=== PATIENT | female | born 1990 | race African-American/Black ===

== ENCOUNTER 2018-01-22 07:17 | Emergency (ER) | payer OTHER ==
[~2018-01-22] VITALS: Ht 165.1 cm; Wt 86.4 kg
[2018-01-22 07:20] VITALS: BP 121/71
[2018-01-22] MEDS ORDERED: ACET-66 PO (07:27)
[2018-01-22] MEDS ORDERED: CYCL-309 PO (07:27)
[2018-01-22] MEDS ORDERED: DIAZ5TAB PO (07:27)
== END 2018-01-22 08:25 | disposition home or self-care (01) ==
LOC: EMS 07:19
DX: M54.5 Low back pain (principal)
CPT/HCPCS: 99281